=== PATIENT | female | born 1970 | race Caucasian/White ===

== ENCOUNTER 2022-09-19 15:08 | Emergency (ER) | payer OTHER ==
[~2022-09-19] VITALS: Ht 162.6 cm; Wt 72.6 kg
[2022-09-19 15:27] VITALS: BP 142/72
[2022-09-19] MEDS ORDERED: oxyCODONE/APAP 5/325 MG 1 TAB TAB PO ONE (16:40)
--- NOTE | 2022-09-19 17:00 | NUR ---
pt placed on bedpan, urine collected, sample at bedside. linens changed, pillow and blankets given. pt more comfortabe at this time.
[2022-09-19] MEDS ORDERED: NAPR-54 PO (17:59)
[2022-09-19] MEDS ORDERED: ACET-5629 PO (18:07)
[2022-09-19 19:30] VITALS: BP 135/72
--- NOTE | 2022-09-19 19:30 | NUR ---
Patient discharged with v/s stable. Written and verbal after care instructions given and explained. Patient alert, oriented and verbalized understanding of instructions. All questions addressed prior to discharge. ID band removed. Patient advised to follow up with PMD. Rx of PERCOCET AND NAPROXEN given. Patient educated on indication of medication including possible reaction and side effects. Opportunity to ask questions provided and answered.
--- NOTE | 2022-09-19 19:40 | NUR ---
PATIENT SITTING IN BED PENDING CD
--- NOTE | 2022-09-19 20:00 | NUR ---
Wheel Chair Assisted with to car.
== END 2022-09-19 19:30 | disposition home or self-care (01) ==
LOC: MED 15:08 → EDBD 15:08 → MED 19:30
DX: S82.041A Displaced comminuted fracture of right patella, initial encounter for closed fracture (principal); W18.30XA Fall on same level, unspecified, initial encounter; Y93.89 Activity, other specified; Y92.89 Other specified places as the place of occurrence of the external cause; Y99.8 Other external cause status
CPT/HCPCS: 29505; 73562; 99283